=== PATIENT | male | born 1985 | race Two or more races ===

== ENCOUNTER 2017-04-25 03:29 | Emergency (ER) | payer MEDICAID ==
[~2017-04-25] VITALS: Ht 180.3 cm; Wt 91.2 kg
[2017-04-25] MEDS ORDERED: Norco 5mg/325mg tab ORAL ONE (03:45)
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
[2017-04-25] MEDS ORDERED: HYDROCODON-ACE1 EA15 ORAL (04:58)
[2017-04-25 04:59] VITALS: BP 135/82
[2017-04-25 05:07] VITALS: BP 135/82
--- NOTE | 2017-04-25 08:35 | Diagnostic Imaging Report ---
Indications: Trauma to right second finger, pain Technique: 3 views right second finger. Findings: Comparison: None Soft tissues of the base of the finger are mildly swollen. No acute fracture, dislocation, joint space widening , additional soft tissue swelling/foreign body/gas, or other acute changes are identified. Chronic appearing contour deformities second metacarpal diaphysis. No other chronic changes are demonstrated. IMPRESSION: Soft tissue swelling, nonspecific Otherwise no evidence of acute injury Suggestion of old, healed fracture second metacarpal.
--- NOTE | 2017-04-25 08:37 | Diagnostic Imaging Report ---
Indications: Head trauma with laceration, pain Technique: Continuous helical CT imaging of the brain was performed with automatic exposure control on a Siemens sensation [address] scanner. Axial and coronal images were reconstructed at 5 mm slice thickness and interval. CTDI volume(s): 70 mGy Total DLP: 1365 mGy-cm Findings: Comparison: None. Intracranial anatomy is unremarkable. No evidence of mass or hemorrhage, other attenuation abnormality, mass effect, midline shift, hydrocephalus or increased intracranial pressure. Bone window images are unremarkable. Visualized paranasal sinuses and mastoid air cells are clear. IMPRESSION: Negative noncontrast CT scan of the brain . This correlates with [facility] preliminary report. The CT scanner at [facility] is accredited by the [employer] and the scans are performed using protocols designed to limit radiation exposure to as low as reasonably achievable to attain images of sufficient resolution adequate for diagnostic evaluation.
== END 2017-04-25 05:09 | disposition home or self-care (01) ==
LOC: EDBD 03:29 → EMR 05:00
DX: S09.8XXA Other specified injuries of head, initial encounter (principal); S01.112A Laceration without foreign body of left eyelid and periocular area, initial encounter; S60.011A Contusion of right thumb without damage to nail, initial encounter; Y04.2XXA Assault by strike against or bumped into by another person, initial encounter; Y92.511 Restaurant or cafe as the place of occurrence of the external cause; Z88.0 Allergy status to penicillin
CPT/HCPCS: 12011; 70450; 73140; 99284; Z7502